=== PATIENT | male | born 1995 | race Caucasian/White ===

== ENCOUNTER → 2019-02-11 | Outpatient (CLI) | payer BC ==
[2019-02-11 09:41] LABS: BASO % 0.7 % (0.0-2.0); EOS # 0.5 (0.0-0.7); EOS % 8.2 % (0-4.0); GRAN # 3.4 (1.4-6.5); GRAN % 57.2 % (42.2-75.2); HEMATOCRIT 45.8 % (42.0-52.0); HEMOGLOBIN 16.1 g/dl (13.5-18.0); LYMPH # 1.5 (1.2-3.4); LYMPH % 25.6 % (20.0-51.0); MEAN CELL VOLUME 84 fl (80.0-100.0); MEAN CORPUSCULAR HEMOGLOBIN 30 pg (27.0-31.0); MEAN CORPUSCULAR HGB CONC 35 g/dl (33.0-37.0); MEAN PLATELET VOLUME 10.8 fl (7.4-10.4); MONO # 0.5 (0.1-0.6); MONO % 8.1 % (1.7-9.3); PLATELET COUNT 263 K/mm3 (130-400); RED BLOOD COUNT 5.46 M/mm3 (4.20-5.60); REDCELL DISTRIBUTION WIDTH-CV 12.7 % (11.5-14.5)
[2019-02-11 09:51] LABS: ALANINE AMINOTRANSFERASE 7 U/L (21-72); ALBUMIN 4.6 gm/dL (3.5-5.0); ALKALINE PHOSPHATASE 69 U/L (50-136); ANION GAP 10 mmol/L (7-16); AST,SGOT 20 U/L (15-37); BILIRUBIN,TOTAL 1.2 mg/dL (0.0-1.0); BLOOD UREA NITROGEN 15 mg/dL (9-20); CALCIUM 9.9 mg/dL (8.4-10.2); CARBON DIOXIDE 29 mmol/L (22-30); CHLORIDE 104 mmol/L (98-107); CREATININE, serum 0.99 (0.66-1.25); GLUCOSE 94 mg/dL (74-106); LIPASE 49 U/L (23-300); POTASSIUM 4.4 mmol/L (3.4-5.0); SODIUM 142 mmol/L (137-145); TOTAL PROTEIN 8.2 gm/dL (6.4-8.2)
[2019-02-11 09:56] LABS: C-REACTIVE PROTEIN < 0.5 mg/dL (0.0-0.9)
== END ==
LOC: COL.LAB 09:14
PROVIDERS: Physician Assistant Medical
DX: R10.31 Right lower quadrant pain (principal)